=== PATIENT | female | born 1950 | race Caucasian/White ===

== ENCOUNTER → 2016-09-30 06:46 | Day surgery (SDC) | payer MEDICARE, BC ==
[~2016-09-30 06:46] MED LIST: Buffered Lidocaine 1% SYR 3ML* 3 ML/SYR SYRINGE INTRADERM ONE; Buffered Lidocaine 1% SYR 3ML* 3 ML/SYR SYRINGE ONE; Bupivacaine 0.25% SDV* 30 ML ONE; Bupivacaine 0.5% W/EPI SDV* 30 ML VIAL ONE; Dexamethasone IV* 4 MG/ML 1 ML (4 MG) ONE; DiMENhydriNATE IV* 50 MG/ML VIAL IV PUSH ONE; DiMENhydriNATE IV* 50 MG/ML VIAL ONE; EPHEDrine (Pressors)* 50 MG/ML VIAL ONE; EPINEPHrine AMP 1 MG/ML ONE; Famotidine IV* 10 MG/ML 2 ML (20 mg) IV ONE; Famotidine IV* 10 MG/ML 2 ML (20 mg) ONE; KETAMINE HCL* 50 MG/ML 10 ML VIAL ONE; Ketorolac INJ* 30 MG/ML 1 ML VIAL ONE; Lidocaine 2% PF * 5 ML VIAL ONE; Midazolam* 1 MG/ML 5 ML VIAL (5 MG) ONE; Morphine INJ* 10 MG/ML 1 ML CARPUJECT ONE; Morphine INJ* 2 MG/ML 1 ML CARPUJECT IV PRN; Ondansetron INJ* 2 MG/ML VIAL ONE; PROCHLORPERAZINE INJ 5 MG/ML 2 ML VIAL IV PRN; PROCHLORPERAZINE INJ 5 MG/ML 2 ML VIAL ONE; Phenylephrine INJ* 10 MG/ML 1 ML VIAL (10 MG) ONE; Propofol* 10 MG/ML 20 ML BTL IV PUSH ONE; Scopolamine PATCH Remove* 1 NOTE MISC PATCH OFF ONE; ceFAZolin 2 GM PREMIX (*) 2 GM/50 ML BAG IVPB ONE; fentaNYL* 50 MCG/ML 2 ML VIAL (100 MCG VIAL) ONE; oxyCODONE/Acetamin 5/325 MG* TAB ONE; oxyCODONE/Acetamin 5/325 MG* TAB PO PRN
[2016-09-30] MEDS: fentaNYL* 50 MCG/ML 2 ML VIAL (100 MCG VIAL) IV PRN ×2 (10:50→11:28)
[2016-09-30 13:14] VITALS: BP 140/83
--- NOTE | 2016-10-02 02:20 | OP ---
OPERATIVE REPORT: DATE OF OPERATION: 09/30/16 DATE OF : 52 SURGEON: Antonino Lucero MD PIPELINE SYSTEMS OPERATOR: JOSHUA Ayon ANESTHESIOLOGIST: Dr. Miller. ANESTHESIA: General anesthesia, regional anesthesia. PRE-OP DIAGNOSES: 1. Left shoulder partial thickness rotator cuff tear, supraspinatus. 2. Left shoulder possible biceps, possible superior labral tear. 3. Left shoulder subacromial impingement. 4. Left shoulder AC joint arthritis. 5. Left shoulder capsulitis, stiffness/reduced range of motion. 6. Left shoulder os acromiale POST-OP DIAGNOSES: 1. Left shoulder partial thickness rotator cuff tear, supraspinatus. 2. Left shoulder subacromial impingement. 3. Left shoulder AC joint arthritis. 4. Left shoulder capsulitis, reduced range of motion. 5. No left shoulder biceps tear. 6. Positive left shoulder unstable superior labral tear. 7. Left shoulder os acromiale OPERATIVE PROCEDURE: 1. Left shoulder examination under anesthesia. 2. Left shoulder manipulation under anesthesia. 3. Left shoulder arthroscopic debridement, extensive, including of the superior labrum, rotator cuff interval, and subacromial bursa. 4. Left shoulder arthroscopic lysis of adhesions, rotator interval. 5. Left shoulder arthroscopic release of biceps tendon 6. Left shoulder arthroscopic subacromial decompression. 7. Left shoulder arthroscopic distal clavicle resection. ANTIBIOSIS: 2 g Ancef IV. ESTIMATED BLOOD LOSS: Minimal. COMPLICATIONS: None. SPECIMEN: None. IMPLANTS: None. 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 It affected her activities of daily living as well as sleep. The patient was treated, insufficiently, with 12 full weeks of physical therapy, NSAIDs including Aleve, ibuprofen, and Celebrex as well as Tylenol, and a subacromial cortisone injection. On the patient's exam, she consistently had subacromial impingement signs, pain and/or weakness with rotator cuff stress testing. The patient sometimes had tenderness to palpation of the proximal biceps. The patient had more recent clinic visits and demonstrated decreased forward flexion even after I had allowed some time in clinic to try to enhance this passive range of motion slowly and softly. X- rays demonstrated an os acromiale as well as AC joint, significant narrowing and increased anterior hook of the acromion. MRI demonstrated partial thickness articular-sided rotator cuff tear of the anterior most supraspinatus approximately 50%, chronic, with no increased signal of that tear. It also showed a Nick complex and os acromiale. The patient opted for surgical management. DESCRIPTION OF PROCEDURE: Preoperative written consent. Operative extremity was marked in the preoperative holding. The patient opted for biceps release preoperatively as the biceps needed to be treated likewise as the superior labrum needed to be treated. The patient received a regional anesthetic block in the preoperative holding. The patient was taken back to the operating room and placed in a lateral decubitus position. Dr. Miller intubated the patient with an LMA in that lateral decubitus position. All bony prominences were padded. Axillary roll was placed. Talavera bag was inflated. An examination under anesthesia was done. I did not know, based on her preoperative exam, whether the patient would have restricted range of motion while under anesthesia. As it turned out, examination under anesthesia demonstrated continued limited forward flexion to approximately 120 degrees with limited rotation as well. I performed a manipulation under anesthesia, carefully, with my hands placed close to the glenohumeral joint. Palpable and audible popping were appreciated as I improved the patient's range of motion with manipulation to 180 degrees of forward flexion, 90 degrees of external rotation, and 80 degrees of internal rotation with a shoulder in an abducted position. The left shoulder was placed in 10 pounds of traction. The left shoulder was prepped and draped. Surgical time-out was performed. After the patient was fully prepped and draped, a formal time- out was performed. 20 cc of normal saline were injected from posterior into the left glenohumeral joint. A posterior glenohumeral joint portal was then established using standard technique. Diagnostic arthroscopy was commenced. There was some blood in the glenohumeral joint as is typically seen after manipulation under anesthesia. An anterior glenohumeral joint portal was established under direct visualization. I then did a thorough look around the glenohumeral joint. No significant cartilage lesion of the glenoid or humeral head were visible. I viewed inferiorly, where the capsule had been overly tight and where it clearly been pulled off of the labrum with the manipulation under anesthesia. Looking at the glenoid and labrum, there did appear to be Nick complex. There was a superior labral tear. I debrided the edges of it with an arthroscopic shaver placed anteriorly. This allowed me to better visualize the superior labral tear. With an arthroscopic probe, I doubt that it elevated more than 5 mm and was thus unstable. The biceps tendon itself was not damaged. Given the superior labral tear, the decision was made to cut the biceps. I entered arthroscopic scissors from anterior and cut the biceps tendon at its origin. I debrided the superior labrum to a stable base. I then debrided some very thickened tissue in the rotator interval, likely responsible for some of the patient's restriction of motion preoperatively. This allowed me to well visualize the subscapularis, which was fully intact. I next looked at the undersurface of the supra and infraspinatus. Interestingly, along the anterior edge of the supraspinatus, there was no clear rotator cuff tearing. There was no visible footprint. However, there were some bony changes about the posterior supraspinatus and the superior infraspinatus footprints. There was no clear torn rotator cuff tendon tissue; however, there appeared to be either some cystic lesion or some uncovered footprint. However, if these were uncovered footprints, I would say it was less than 5 mm. It was clearly chronic and clearly not the source of the patient's pain. Shows an area where that exposed footprint was largest and placed a spinal needle to jaylon that spot to evaluate it from the superior side from the subacromial space. All instruments and fluid were removed from the glenohumeral joint. I then went into the subacromial space from posterior and anterior. I established a lateral subacromial portal under direct visualization. In the subacromial space, I encountered tremendous amount of bursitis tissue. I used an arthroscopic shaver to debride this significant amount of bursitis tissue. I was able to well visualize the rotator cuff. There was no clear rotator cuff tear. About the location of the spinal needle, I probed with an arthroscopic probe. I was quite aggressive and still was not able to get all the way through the rotator cuff tendon, demonstrating that if there were rotator cuff tendon tear, it was low-grade partial thickness. I turned my attention to the acromion and debrided approximately 6 mm of the inferior aspect of the anterior hook of the acromion. I was wary of taking too much bone given the presence of an os acromiale. I next addressed the distal clavicle and debrided 8 mm of the distal clavicle. Instruments and fluid were removed from the subacromial space. The skin incisions were closed with figure- of-8 stitches using nylon 4-0 suture. Xeroform, 4x4s, ABD dressings, foam tape , sling, UltraSling was placed. The patient was awakened. LMA was taken out and the patient was transferred to the PACU. DISPOSITION: The patient will receive Percocet for pain control, aspirin for DVT prophylaxis, and Keflex for antibiotic infection prophylaxis postoperatively. She can remove her sling when she is comfortable doing so, wean out of it immediately. I will have her do physical therapy for strengthening and range of motion starting 3 days after surgery, and I will see her in the office 10 to 14 days postoperatively. [id number]/CPS #: [id number] MTDD
== END | disposition home or self-care (01) ==
LOC: OR 06:46
PROVIDERS: ATTEND Orthopaedic Surgery
DX: M75.42 Impingement syndrome of left shoulder (principal); M19.012 Primary osteoarthritis, left shoulder; M75.102 Unspecified rotator cuff tear or rupture of left shoulder, not specified as traumatic; M75.02 Adhesive capsulitis of left shoulder; I10 Essential (primary) hypertension
CPT/HCPCS: A9270-GY; J0171; J0690; J0780; J1100; J1240; J1885; J2250; J2270; J2405; J2704; J3010

== ENCOUNTER 2016-11-27 19:33 | Emergency (ER) | payer MEDICARE, BC ==
[2016-11-27] MEDS ORDERED: Al Hydrox/Mg Hydrox/Simet LIQ* 30 ML UDC PO ONE ×2 (20:26→21:35)
[2016-11-27] MEDS ORDERED: Lidocaine 2% VISCOUS* 15 ML UDC PO ONE ×2 (20:26→21:35)
[2016-11-27] MEDS ORDERED: Famotidine TAB* 20 MG PO ONE (20:26)
--- NOTE | 2016-11-27 21:38 | ED ---
I, Oh,Ivan, scribed for Kvng Birch MD on 11/27/16 at 2026 . Abdominal Pain/Female - HPI Summary HPI Summary: This 66 y/o female presents to ED for acute, burning epigastric pain radiating up to throat since 0100 AM this morning. She stopped taking her GERD medication since 5 days ago. Swallowing makes the pain worse. Blood was noted in n/v. Lying down makes the throat and epigastric pain worse. Pt was able to consume banana, but otherwise had trouble tolerating oral intake. Pt has been controlling her heartburn with chewable TUMS all day today. She took prevacid at 1400 PM this afternoon. PMHx includes known GERD, HTN, and spastic esophagitis. Plan of care involving maalox and GI cocktail is discussed. Pt is currently refusing any cardiac workup. - History of Current Complaint Chief Complaint: EDGeneral Stated Complaint: SEVER HEARTBURN X12 HRS Time Seen by Provider: 11/27/16 20:11 Hx Obtained From: Patient, Medical Records Onset/Duration: Still Present Timing: Constant Pain Intensity: 8 Pain Scale Used: 0-10 Numeric Location: Epigastric Radiates: Yes Radiates to: Other - throat Character: Sharp, Burning Aggravating Factor(s): Food, Other: - lying down Alleviating Factor(s): Antacids Associated Signs and Symptoms: Positive: Nausea, Vomiting. Negative: Fever Allergies/Adverse Reactions: Allergies Allergy/AdvReac Type Severity Reaction Status Date / Time No Known Allergies Allergy Verified 11/27/16 19:41 PMH/Surg Hx/FS Hx/Imm Hx Endocrine/Hematology History: Denies: Hx Diabetes Cardiovascular History: Reports: Hx Hypertension - ON DAILY MEDS, STATES WELL CONTROLLED Denies: Hx Pacemaker/ICD GI History: Reports: Hx Gastroesophageal Reflux Disease - ", Hx Hiatal Hernia History: Denies: Hx Renal Disease Musculoskeletal History: Reports: Hx Arthritis - HANDS, Hx Tendonitis - ? LEFT SHOULDER Sensory History: Reports: Hx Cataracts - BILATERAL 2006, Hx Contacts or Glasses - GLASSES Denies: Hx Hearing Aid Opthamlomology History: Reports: Hx Cataracts - BILATERAL 2006, Hx Contacts or Glasses - GLASSES Neurological History: Reports: Hx Migraine - Hx OF NONE IN YEARS, THEN 1 ON 09/11, NO MEDS Psychiatric History: Denies: Hx Panic Disorder - Cancer History Hx Chemotherapy: No Hx Radiation Therapy: No - Surgical History Surgery Procedure, Year, and Place: 2006 cataract surgery-BILATERAL [facility]. 2000s LEFT ABD. fatty tumor removed DR PEREZ. 2007 hysterectomy (partial) [facility]. pterygium removal Hx Anesthesia Reactions: Yes - 2007 POT OP NIGHT BAD VARGAS, N/V Infectious Disease History: Yes Infectious Disease History: Reports: Hx Clostridium Difficile Denies: Traveled Outside the [place] in Last 30 Days - Family History Known Family History: Negative: Other - breast CA - Social History Alcohol Use: Occasionally Alcohol Amount: 1-2 DRINKS/MONTH Hx Substance Use: No Substance Use Type: Reports: None Hx Tobacco Use: No Smoking Status (MU): Never Smoked Tobacco Have You Smoked in the Last Year: No Review of Systems Negative: Fever Positive: Abdominal Pain - epigastric pain, Vomiting, Nausea Negative: dysuria Negative: Anxious, Depressed All Other Systems Reviewed And Are Negative: Yes Physical Exam Triage Information Reviewed: Yes Vital Signs On Initial Exam: Initial Vitals Temp Pulse Resp BP Pulse Ox 96.8 F 80 14 156/81 100 11/27/16 19:36 11/27/16 19:36 11/27/16 19:36 11/27/16 19:36 11/27/16 19:36 Vital Signs Reviewed: Yes Appearance: Positive: Well-Appearing, No Pain Distress Skin: Positive: Warm, Skin Color Reflects Adequate Perfusion, Dry Head/Face: Positive: Normal Head/Face Inspection Eyes: Positive: EOMI, ESSIE Neck: Positive: Supple, Nontender Abdomen Description: Positive: Other: - epigastric tenderness Musculoskeletal: Positive: Strength/ROM Intact Neurological: Positive: Sensory/Motor Intact, Alert, Oriented to Person Place, Time Psychiatric: Positive: Affect/Mood Appropriate AVPU Assessment: Alert Diagnostics - Vital Signs Vital Signs Temp Pulse Resp BP Pulse Ox 11/27/16 19:36 96.8 F 80 14 156/81 100 - Laboratory Lab Statement: Any lab studies that have been ordered have been reviewed, and results considered in the medical decision making process. Abdominal Pain Fem Course/Dx - Course Course Of Treatment: DISCUSSED LABS/EKG/CHEST PAIN WORK UP WITH PATIENT. SHE BELEIVES THIS IS GERD AND DECLINES WORK UP. PAIN IMPROVED WITH GI COCKTAIL AND PEPCID PO. DISCHARGE HOME STABLE. - Diagnoses Provider Diagnoses: GERD (gastroesophageal reflux disease) Discharge - Discharge Plan Condition: Stable Disposition: HOME Prescriptions: Lansoprazole CAP (NF) [Prevacid CAP (NF)] 30 mg PO DAILY #30 cap. Sucralfate TAB* [Carafate*] 1 gm PO QID #40 tab Patient Education Materials: Gastroesophageal Reflux Disease (ED) Referrals: Lucian Taylor MD [Primary Care Provider] - Additional Instructions: FOLLOW UP WITH YOUR DOCTOR. RETURN TO THE EMERGENCY DEPARTMENT FOR ANY WORSENING OF YOUR CONDITION OR QUESTIONS OR CONCERNS. The documentation as recorded by the Jamaal lockhart Soohyun accurately reflects the service I personally performed and the decisions made by me, Kvng Birch MD.
[2016-11-27 22:14] VITALS: BP 144/84
== END 2016-11-27 22:12 | disposition home or self-care (01) ==
LOC: ED 19:33
DX: K21.9 Gastro-esophageal reflux disease without esophagitis (principal); R11.2 Nausea with vomiting, unspecified; R10.13 Epigastric pain
CPT/HCPCS: 99283; A9270-GY

== ENCOUNTER 2019-09-06 12:41 | Observation (INO) | payer MEDICARE, BC ==
[~2019-09-06 12:41] MED LIST changes: -Buffered Lidocaine 1% SYR 3ML* 3 ML/SYR SYRINGE INTRADERM ONE; -Buffered Lidocaine 1% SYR 3ML* 3 ML/SYR SYRINGE ONE; -Bupivacaine 0.25% SDV* 30 ML ONE; -Bupivacaine 0.5% W/EPI SDV* 30 ML VIAL ONE; -Dexamethasone IV* 4 MG/ML 1 ML (4 MG) ONE; -DiMENhydriNATE IV* 50 MG/ML VIAL IV PUSH ONE; -DiMENhydriNATE IV* 50 MG/ML VIAL ONE; -EPHEDrine (Pressors)* 50 MG/ML VIAL ONE; -EPINEPHrine AMP 1 MG/ML ONE; -Famotidine IV* 10 MG/ML 2 ML (20 mg) IV ONE; -Famotidine IV* 10 MG/ML 2 ML (20 mg) ONE; +Hydrochlorothiazide TAB* 25 MG PO SCH; -KETAMINE HCL* 50 MG/ML 10 ML VIAL ONE; -Ketorolac INJ* 30 MG/ML 1 ML VIAL ONE; -Lidocaine 2% PF * 5 ML VIAL ONE; -Midazolam* 1 MG/ML 5 ML VIAL (5 MG) ONE; -Morphine INJ* 10 MG/ML 1 ML CARPUJECT ONE; -Morphine INJ* 2 MG/ML 1 ML CARPUJECT IV PRN; -Ondansetron INJ* 2 MG/ML VIAL ONE; -PROCHLORPERAZINE INJ 5 MG/ML 2 ML VIAL IV PRN; -PROCHLORPERAZINE INJ 5 MG/ML 2 ML VIAL ONE; -Phenylephrine INJ* 10 MG/ML 1 ML VIAL (10 MG) ONE; -Propofol* 10 MG/ML 20 ML BTL IV PUSH ONE; -Scopolamine PATCH Remove* 1 NOTE MISC PATCH OFF ONE; -ceFAZolin 2 GM PREMIX (*) 2 GM/50 ML BAG IVPB ONE; -fentaNYL* 50 MCG/ML 2 ML VIAL (100 MCG VIAL) ONE; -oxyCODONE/Acetamin 5/325 MG* TAB ONE; -oxyCODONE/Acetamin 5/325 MG* TAB PO PRN
[2019-09-06 13:12] LABS: ABS Eosinophils 0.1 10^3/ul (0-0.6); ABS Lymphocytes 2.9 10^3/ul (1.0-4.8); ABS Monocytes 0.5 10^3/ul (0-0.8); ABS Neutrophils 4.5 10^3/ul (1.5-7.7); Eosinophil % 0.7 %; Hematocrit 41 % (35-47); Hemoglobin 14.6 g/dL (12.0-16.0); Lymphocyte % 36.6 %; Mean Corpuscular HGB Conc 35 g/dL (31-36); Mean Corpuscular Hemoglobin 30 pg (27-31); Mean Corpuscular Volume 86 fL (80-97); Mean Platelet Volume 7.7 fL (7.4-10.4); Nucleated Red Blood Cells % 0.2; Platelet Count 281 10^3/uL (150-450); Red Blood Count 4.79 10^6 /uL (3.70-4.87); Red Cell Distribution Width 13 % (10-15); White Blood Count 7.9 10^3/uL (3.5-10.8)
[2019-09-06 13:23] LABS: INR 0.97 (0.82-1.09)
[2019-09-06 13:30] LABS: Albumin 4.2 g/dL (3.2-5.2); Albumin/Globulin Ratio 1.5 (1-3); BUN/Creatinine Ratio 21.8 (8-20); Calcium 9.3 mg/dL (8.6-10.3); EGFR African American 88.9 (>60); EGFR Non-African American 73.4 (>60); Globulin 2.8 g/dL (2-4); Potassium 4.4 mmol/L (3.5-5.0); Total Bilirubin 0.4 mg/dL (0.2-1.0)
--- NOTE | 2019-09-06 13:33 | ED ---
HPI Chest Pain - HPI Summary HPI Summary: Pt is a 69 y/o F presenting to the ED with a chief complaint of chest pain initially onset a while ago. Pt states it has been worsening for about 1 week now, and describes episodes of SOB, weakness, and slight edema of her feet. She called her doctor this morning who did an EKG and recommended she come here d/t EKG changes. Denies cardiac hx, hx PE/DVT, CHF. Fam hx of cardiac problems. - History of Current Complaint Chief Complaint: EDChestPainROMI Time Seen by Provider: 09/06/19 13:12 Hx Obtained From: Patient Onset/Duration: Started Days Ago, Still Present Timing: Intermittent, Lasting Hours Initial Severity: Mild Current Severity: Mild Pain Intensity: 2 Pain Scale Used: 0-10 Numeric Chest Pain Location: Diffuse Chest Pain Radiates: No Character: Pressure/Squeezing Aggravating Factor(s): Nothing Alleviating Factor(s): Nothing Associated Signs and Symptoms: Positive: Chest Pain, Weakness, Shortness of Breath, Palpitations, Edema - Allergy/Home Medications Allergies/Adverse Reactions: Allergies Allergy/AdvReac Type Severity Reaction Status Date / Time No Known Allergies Allergy Verified 09/06/19 13:44 Home Medications: Home Medications Aspirin EC TAB* [Ecotrin EC Low Dose 81 MG*] 81 mg PO DAILY 09/06/19 [History Confirmed 09/06/19] Losartan/Hydrochlorothiazide [Losartan-Hctz 50-12.5 mg Tab] 1 each PO DAILY 06/16 [History Confirmed 09/06/19] PMH/Surg Hx/FS Hx/Imm Hx Previously Healthy: Yes Endocrine/Hematology History: Denies: Hx Diabetes Cardiovascular History: Reports: Hx Hypertension - ON DAILY MEDS, STATES WELL CONTROLLED Denies: Hx Pacemaker/ICD GI History: Reports: Hx Gastroesophageal Reflux Disease - ", Hx Hiatal Hernia History: Denies: Hx Renal Disease Musculoskeletal History: Reports: Hx Arthritis - HANDS, Hx Tendonitis - ? LEFT SHOULDER Sensory History: Reports: Hx Cataracts - BILATERAL 2006, Hx Contacts or Glasses - GLASSES Denies: Hx Hearing Aid Opthamlomology History: Reports: Hx Cataracts - BILATERAL 2006, Hx Contacts or Glasses - GLASSES Neurological History: Reports: Hx Migraine - Hx OF NONE IN YEARS, THEN 1 ON 09/11, NO MEDS Psychiatric History: Denies: Hx Panic Disorder - Cancer History Hx Chemotherapy: No Hx Radiation Therapy: No - Surgical History Surgery Procedure, Year, and Place: 2006 cataract surgery-B[facility]ATER[facility]. 2000s LEFT ABD. fatty tumor removed DR CHRIS. 2007 hysterectomy (partial) [facility]. pterygium removal Hx Anesthesia Reactions: Yes - 2007 POT OP NIGHT BAD VARGAS, N/V Infectious Disease History: No Infectious Disease History: Reports: Hx Clostridium Difficile Denies: Traveled Outside the [place] in Last 30 Days - Family History Known Family History: Negative: Other - breast CA - Social History Alcohol Use: Occasionally Alcohol Amount: 1-2 DRINKS/MONTH Hx Substance Use: No Substance Use Type: Reports: None Hx Tobacco Use: No Smoking Status (MU): Never Smoked Tobacco Have You Smoked in the Last Year: No Review of Systems Positive: Palpitations, Chest Pain Positive: Shortness Of Breath Positive: Edema Positive: Weakness All Other Systems Reviewed And Are Negative: Yes Physical Exam - Summary Physical Exam Summary: Constitutional: Well-developed, Well-nourished, Alert. (-) Distressed Skin: Warm, Dry HENT: Normocephalic; Atraumatic Eyes: Conjunctiva normal Neck: Musculoskeletal ROM normal neck. (-) JVD, (-) Stridor, (-) Nuchal rigidity Cardio: Rhythm regular, rate normal, Heart sounds normal; Intact distal pulses; Radial pulses are 2+ and symmetric. (-) Murmur Pulmonary/Chest wall: Effort normal. (-) Respiratory distress, (-) Wheezes, (-) Rales Abd: Soft, (-) tenderness, (-) Distension, (-) Guarding, (-) Rebound Musculoskeletal: (-) Edema Lymph: (-) Cervical adenopathy Neuro: Alert, Oriented x3 Psych: Mood and affect Normal Triage Information Reviewed: Yes Vital Signs On Initial Exam: Initial Vitals Temp Pulse Resp BP Pulse Ox 97.1 F 69 16 176/87 100 09/06/19 12:44 09/06/19 12:44 09/06/19 12:44 09/06/19 12:44 09/06/19 12:44 Vital Signs Reviewed: Yes Diagnostics - Vital Signs Vital Signs Temp Pulse Resp BP Pulse Ox 09/06/19 12:44 97.1 F 69 16 176/87 100 - Laboratory Lab Results: Lab Results 09/06/19 09/06/19 Range/Units 12:53 12:53 WBC 7.9 (3.5-10.8) 10^3/uL RBC 4.79 (3.70-4.87) 10^6 /uL Hgb 14.6 (12.0-16.0) g/dL Hct 41 (35-47) % MCV 86 (80-97) fL MCH 30 (27-31) pg MCHC 35 (31-36) g/dL RDW 13 (10-15) % Plt Count 281 (150-450) 10^3/uL MPV 7.7 (7.4-10.4) fL Neut % (Auto) 56.5 % Lymph % (Auto) 36.6 % [place] % (Auto) 5.8 % Eos % (Auto) 0.7 % Baso % (Auto) 0.4 % Absolute Neuts (auto) 4.5 (1.5-7.7) 10^3/ul Absolute Lymphs (auto) 2.9 (1.0-4.8) 10^3/ul Absolute Monos (auto) 0.5 (0-0.8) 10^3/ul Absolute Eos (auto) 0.1 (0-0.6) 10^3/ul Absolute Basos (auto) 0.0 (0-0.2) 10^3/ul Absolute Nucleated RBC 0.0 10^3/ul Nucleated RBC % 0.2 INR (Anticoag Therapy) 0.97 (0.82-1.09) Result Diagrams: 09/06/19 12:53 09/06/19 12:53 Lab Statement: Any lab studies that have been ordered have been reviewed, and results considered in the medical decision making process. - Radiology CXR Radiology Interpretation Completed By: Radiologist Summary of Radiographic Findings: Stigmata of probable obstructive lung disease. No acute pulmonary or cardiac process evident. ED physician has reviewed this report. - EKG 1244 Cardiac Rate: NL - 67bpm EKG Rhythm: Sinus Rhythm ST Segment: Normal Ectopy: None EKG Comparison: No Significant Change Summary of EKG Findings: An EKG at 1244 reveals normal sinus rhythm 67bpm, nml axis, nml intervals. T-wave inversions in III, v3, v4. No STEMI. No acute changes. When compared to prior, 11/30/2015, no significant change is noted. ED physician has reviewed and interpreted this EKG. Chest Pain Course/Dx - Course Course Of Treatment: 69 y/o F p/w SOUSA and chest tightness. - EKG reviewed, no noted changes. - labs notable for normal trop, BNP normal (does have trace edema LE). - CXR normal. Chest Pain DDX: The patient is well appearing, with stable vitals. Given the patient's clinical presentation, highest on differential is ACS. Heart score 5, will d/w hospital. Although less likely, differential also includes the following: --Pneumothorax: Equal breath sounds, story inconsistent since gradual onset of symptoms. CXR shows no evidence of pneumothorax. Unlikely. --Cardiac tamponade: The history and physical are not concerning for tamponade. No Pulsus Paradoxus, no tachypnea. Unlikely. -- Mediastinitis or esophageal rupture: The history is not consistent, as the patient has had no recent history of significant wretching, instrumentation, or mediastinal surgeries. Unlikely. --Aortic dissection: The patient does not describe the classical tearing chest pain radiating into the back, and the CXR does not show mediastinal widening or other signs of aortic dissection. Unlikely. --PE: Vitals wnl (not hypoxic, tachycardic or tachypneic). --ACS: The initial EKG shows no ischemic changes. The initial troponin is not elevated. - Diagnoses Provider Diagnoses: Chest pain, SOB (shortness of breath) - Provider Notifications Discussed Care Of Patient With: Aguilar Flores Time Discussed With Above Provider: 14:34 Instructed by Provider To: Admit As Inpatient Discharge ED - Sign-Out/Discharge Documenting (check all that apply): Patient Departure - Discharge Plan Condition: Stable Disposition: ADMITTED TO [facility] - Billing Disposition and Condition Condition: STABLE Disposition: Admitted to [facility] - Attestation Statements Document Initiated by Scribe: Yes Documenting Scribe: Serena Sarmiento Provider For Whom Jordana is Documenting (Include Credential): Pratibha Ruiz MD. Scribe Attestation: Serena Chen, scribed for Pratibha Ruiz MD. on 09/06/19 at 2020. Scribe Documentation Reviewed: Yes Provider Attestation: The documentation as recorded by the scribe, Serena Sarmiento accurately reflects the service I personally performed and the decisions made by me, Pratibha Ruiz MD. Status of [place] Document: Viewed
[2019-09-06] MEDS ORDERED: Enoxaparin(*) 40 MG/0.4 ML SYR SUBCUT SCH ×2 (16:00→23:30)
--- NOTE | 2019-09-06 17:25 | HP ---
CC: Dr. Yenny Ma * HISTORY AND PHYSICAL: DATE OF ADMISSION: 09/06/19 PRIMARY CARE PROVIDER: Dr. Yenny Ma. ATTENDING PHYSICIAN: Dr. Aguilar Flores * (dictated by JOSHUA Garcia). CHIEF COMPLAINT: 1. Shortness of breath. 2. Chest pain. HISTORY OF PRESENT ILLNESS: Ms. Curran is a 69-year-old female with a past medical history of hypertension, GERD, esophageal spasms, who presented to the ER today with complaints of chest pain and shortness of breath. She notes that she has had this for "years," but notes that it happens intermittently approximately once every 3 months. She states that this has been occurring daily for the last 1 week. She notes that her shortness of breath is worse at night when she is lying flat. To alleviate this, she sleeps in a recliner, which she notes improves her shortness of breath and chest pain, but her chest tightness lasts for several hours afterwards. She has associated chest tightness with activity such as cleaning the house. She also has associated shortness of breath and dizziness. She denies diaphoresis. Her chest pain is midsternal without radiation, it improves with rest. She describes it as a tightness that she rates at 5-6/10. She does have associated palpitations at times. Incidentally, the patient notes that her left arm aches every morning and this goes away within 1 hour. This left arm ache is not associated with chest pain and she believes it is positional because of the way she sleeps. The patient states that she has had associated bilateral lower extremity edema, which has since resolved. She states that elevation of the extremities improves the edema. The patient complains of headache and intermittent dry cough for the last couple of weeks. The patient's HEART score calculated is 5, moderate score. In the ER, the patient received a full workup including laboratory data. CBC and CMP were unremarkable. Troponin 0.00. An EKG shows ST depression in leads V3 to V5, which are unchanged from EKG in November of 2015. Chest x-ray shows probable obstructive lung disease. The hospitalist team was asked to evaluate the patient for admission. PAST MEDICAL HISTORY: 1. Hypertension. 2. GERD. 3. Esophageal spasms. 4. History of migraines. 5. Osteoarthritis. PAST SURGICAL HISTORY: Bilateral cataracts, fatty tumor from abdomen, partial hysterectomy, pterygium, left shoulder. HOME MEDICATIONS: 1. Aspirin 81 mg p.o. daily. 2. Cholecalciferol 1000 units p.o. daily. 3. Conjugated estrogens vaginal cream 1 application vaginally 2 times per week. 4. Cyanocobalamin 1000 mcg p.o. 4 times per week. 5. Hydrochlorothiazide 12.5 mg p.o. 3 times per week. 6. Hyoscyamine 0.125 mg p.o. daily p.r.n. 7. Lansoprazole 30 mg p.o. daily. 8. Losartan 50 mg p.o. daily. ALLERGIES: No known drug allergies. FAMILY HISTORY: The patient has 4 siblings who have had coronary artery disease or WI. Mother had CVA, valve replacement. Father had WI and diabetes. Paternal grandmother had an WI. No family history of cancer. SOCIAL HISTORY: The patient denies current or former use of tobacco. She drinks less than weekly. 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 She is . She has 1 child. She lives home alone. In the event that she is unable to make her own medical decisions, she has appointed her brother Randall Mar to be her surrogate decision maker. REVIEW OF SYSTEMS: A 14-point review of systems has been performed and all the pertinent positives and negatives are in the HPI. All other systems are negative. PHYSICAL EXAMINATION GENERAL: Ms. Curran is a well-developed, well-nourished, slightly obese, older white woman, who is sitting up in bed. She appears to be in no acute distress. She is pleasant and cooperative. She is breathing comfortably on room air. HEENT: PERRL. EOMI. Visual fung grossly intact. Nonicteric sclerae. Hearing is grossly intact. Oral mucous membranes are moist. There are no lesions. The pharynx is clear. The tongue is at midline. Palate elevates symmetrically. PULMONARY: Symmetrical chest expansion without use of accessory muscles. Clear to auscultation bilaterally without rhonchi, wheeze, or rales. CARDIOVASCULAR: Regular rate and rhythm with S1 and S2 present without murmurs , rubs, clicks, or gallops. There is no JVD. There is trace lower extremity edema. ABDOMEN: Bowel sounds in all quadrants. Soft, nontender to palpation. NEURO: The patient is awake. She is alert and oriented x3 with cranial nerves II through XII grossly intact. She is able to move all of her extremities with a motor strength of 5/5 bilaterally in the upper and lower extremities. She has an equal patient care assistant strength. DIAGNOSTIC STUDIES/LAB DATA: CBC unremarkable. Chem panel unremarkable except for BUN/creatinine ratio of 21.8. Troponin 0.00. 1. EKG: Rate [address] depressions in V3 to V5, which are unchanged in comparison to November 2015 EKG. 2. Chest x-ray, impression: Stigmata of probable obstructive lung disease. No acute pulmonary or cardiac process evident. ASSESSMENT AND PLAN: Ms. Curran is a 69-year-old female with a past medical history of hypertension, gastroesophageal reflux disease, esophageal spasms, who presented to the ER today with complaints of dyspnea on exertion, paroxysmal nocturnal dyspnea, and exertional chest pain. She will be admitted for: 1. Chest pain, dyspnea on exertion. The patient presents with exertional chest pain, dyspnea on exertion, and paroxysmal nocturnal dyspnea as well as lower extremity edema. She states that these symptoms have been occurring for approximately 1 week. In the ER, the patient has a troponin of 0.00 x1. We will continue to trend the patient's troponin. An EKG was obtained and shows ST depressions in V3 to V5, which are unchanged from her previous EKG in 2016. We will repeat an EKG in the morning. The patient is currently on aspirin 81 mg daily and we will continue this medication. Risk stratification with hemoglobin A1c and lipid panel. An echo has been ordered. Discussion was had with the patient and recommendations are that the patient receive a stress test while she is in the hospital. The patient is not interested in spending the weekend in the hospital, but would like to take the night to think about it. Meanwhile, I have scheduled a stress test for Monday morning inpatient and she will be n.p.o. after midnight on Monday night. 2. Hypertension. Continue the patient's losartan 50 and HCTZ 12.5 three times per week. 3. Gastroesophageal reflux disease. Continue PPI. 4. Esophageal spasms. Hyoscyamine p.r.n. 5. DVT prophylaxis: According to DVT Risk Assessment, the patient scores 3, placing her at high risk. She will be started on Lovenox. 6. Code status: Full code. TIME SPENT: Approximately 60 minutes was spent on this admission, greater than half that time was spent [id number] with the patient obtaining history, performing physical, and reviewing the plan of care. The case has been discussed with my attending Dr. Flores, who is in agreement with the plan of care. JOSHUA STALLINGS [id number]/[facility] #: [id number] AARTI
--- NOTE | 2019-09-06 17:39 | ECHO ---
*[facility]* [place] [address] Fax #: [phone] Transthoracic Echocardiogram Patient: Aleyda Curran : 1950 Study Date: 09/06/2019 Age: 69 Gender: F HR: 74 bpm Height: 62 in /157.5 cm BSA: 1.77 m^2 Weight: 166.7 lb /75.8 kg BMI: 30.5 kg/m^2 *Cattle Care Worker: * Meg Denise RD *Referring Physician: * Mar Mcduffie *Reading Physician: * Mo Flanagan MD Indications: Chest Pain, unspecified. SOB. History: Risk factors: Hypertension. Hiatal hernia. Conclusions Summary: - Left ventricle: The cavity size is normal. Wall thickness is mildly increased. Systolic function is normal. The estimated ejection fraction is 60-65%. Wall motion is normal; there are no regional wall motion abnormalities. - Right ventricle: The cavity size is mildly dilated. Systolic function is mildly reduced. - Left atrium: The atrium is mildly dilated. - Mitral valve: There is mild to moderate regurgitation. - Pulmonary arteries: Systolic pressure is within the normal range. Recommendations: None prior for comparison. Study data: Transthoracic echocardiogram. Procedure: Transthoracic echocardiography was performed. Image quality was fair. Complete 2D, spectral Doppler, and color flow Doppler. Location: Emergency department. Patient status: Inpatient. Patient room number: ED-03. Rhythm: Normal sinus rhythm with PAC's. Findings Left ventricle: The cavity size is normal. Wall thickness is mildly increased. Systolic function is normal. The estimated ejection fraction is 60-65%. Wall motion is normal; there are no regional wall motion abnormalities. Doppler parameters are consistent with abnormal left ventricular relaxation (grade 1 diastolic dysfunction). Right ventricle: The cavity size is mildly dilated. Systolic function is mildly reduced. Left atrium: The atrium is mildly dilated. Right atrium: The atrium is normal in size. Mitral valve: The leaflets are mildly thickened. There is no evidence of stenosis. There is mild to moderate regurgitation. Aortic valve: The valve is trileaflet. The leaflets are mildly thickened. There is no evidence of stenosis. There is trace regurgitation. Tricuspid valve: The leaflets are normal thickness. There is no evidence of stenosis. There is mild regurgitation. Pulmonic valve: The leaflets are normal thickness. There is no evidence of stenosis. There is trace regurgitation. Aorta: Aortic root: The aortic root is appears normal. Ascending aorta: The ascending aorta is appears normal. Aortic arch: The aortic arch is appears normal. Pericardium: There is no significant pericardial effusion. Pulmonary arteries: Not well visualized. Systolic pressure is within the normal range, tricuspid regurgitation velocity 2.7 m/s Systemic veins: Inferior vena cava: The vessel is dilated. There is (>= 50%) respiratory change in the IVC dimension. Measurements Left ventricle Value Ref Aortic valve Value Ref WESLY, LAX 4.2 cm 3.8 - 5.2 Maxi diam, ED 1.7 cm ----- ESD, LAX 3.0 cm 2.2 - 3.5 Peak v, S 1.33 m/sec ----- FS, LAX 30 % 27 - 45 VTI, S 26.0 cm ----- PW, ED, LAX (H) 1.1 cm 0.6 - 0.9 Mean grad, S 3.0 mm Hg ----- FS 30 % 27 - 45 Peak grad, S 7.0 mm Hg ----- PW, ED (H) 1.1 cm 0.6 - 0.9 LVOT/AV, VTI ratio 0.77 ----- E', lat maxi, TDI (L) 8.7 cm/sec >=10.0 E/e', lat maix, 9 Mitral valve Value Ref TDI Peak E 0.77 m/sec ----- E', med maxi, TDI 7.7 cm/sec >=7.0 Peak A 1.15 m/sec --- -- E/e', med maxi, 10 Decel time 229 ms ----- TDI Peak grad, D 2.3 mm Hg ----- E', avg, TDI 8.2 cm/sec Peak E/A ratio 0.7 ----- E/e', avg, TDI 9 <=14 Pulmonic valve Value Ref LVOT Value Ref Peak v, S 1.27 m/sec ----- Peak brandon, S 0.97 m/sec Peak grad, S 6.0 mm Hg ----- VTI, S 20.0 cm Mean grad, S 3 mm Hg Tricuspid valve Value Ref TR peak v 2.7 m/sec <=2.8 Ventricular septum Value Ref Peak RV-RA grad, S 29 mm Hg ----- IVS, ED (H) 1.1 cm 0.6 - 0.9 Aortic root Value Ref Right ventricle Value Ref Root diam 2.9 cm <4.0 WESLY, LAX 3.5 cm WESLY minor ax, A4C (H) 4.1 cm 1.9 - 3.5 Ascending aorta Value Ref mid AAo AP diam, S 3.1 cm ----- Pressure, S 37 mm Hg Aortic arch Value Ref Left atrium Value Ref Arch diam 2.4 cm ----- AP dim, ES (H) 3.90 cm 2.70 - 3.80 Decending aorta Value Ref ML dim, A4C 4.0 cm Roshni peak brandon 0.79 m/sec ----- SI dim, A4C 5.2 cm Vol/bsa, ES, 1-p 26 ml/m^2 11 - 40 Pulmonary artery Value Ref A4C Pressure, S 31.0 mm Hg ----- Vol/bsa, ES, A/L 32 ml/m^2 16 - 34 Inferior vena cava Value Ref Right atrium Value Ref Diam 2.2 cm ----- SI dim, ES 4.6 cm 3.4 - 5.3 ML dim, ES, A4C 3.4 cm 2.6 - 4.4 Estimated RAP 8 mm Hg Legend: (L) and (H) jaylon values outside specified reference range. Prepared and electronically signed by Mo Flanagan MD 09/06/2019 17:38
[2019-09-06] MEDS: Acetaminophen TAB* 325 MG PO PRN (23:37)
[2019-09-07 06:57] LABS: HDL Cholesterol 44.7 mg/dL
[2019-09-07] MEDS ORDERED: Pantoprazole TAB * 40 MG TAB PO SCH (09:00)
[2019-09-07] MEDS ORDERED: Cyanocobalamin TAB* 500 MCG PO SCH (09:00)
[2019-09-07] MEDS ORDERED: Cholecalciferol TAB* 1000 UNITS PO SCH (09:00)
[2019-09-07] MEDS ORDERED: Aspirin EC TAB* 81 MG TAB.EC PO SCH (09:00)
[2019-09-07] MEDS ORDERED: Losartan TAB* 25 MG PO SCH (09:00)
--- NOTE | 2019-09-07 10:39 | PN ---
Subjective Date of Service: 09/07/19 Interval History: Admitted yesterday for chronic SOB. Trop negative x 3. No events on tele. Pending stress on Monday. CXR with possible obstructive disease but pt has no h/ o tobacco use and is not wheezing or hypoxic. She feels well today and wants to go home. She understands the indication for stress test, and would prefer to do that outpatient with her PCP. Objective Active Medications: Acetaminophen (Tylenol Tab*) 650 mg PO Q4H PRN PRN Reason: mild to moderate pain Last Admin: 09/06/19 23:37 Dose: 650 mg Aspirin (Aspirin Ec Tab*) 81 mg PO DAILY [facility] Last Admin: 09/07/19 08:18 Dose: 81 mg Cholecalciferol (Vitamin D Tab*) 1,000 units PO DAILY [facility] Last Admin: 09/07/19 08:18 Dose: 1,000 units Cyanocobalamin (Vitamin B12 Tab*) 1,000 mcg PO SuTuThSa [facility] Last Admin: 09/07/19 08:19 Dose: 1,000 mcg Enoxaparin Sodium (Lovenox(*)) 40 mg SUBCUT BEDTIME [facility] Last Admin: 09/06/19 23:38 Dose: 40 mg Estrogens Conjugated (Premarin Vag Cream*) 1 applic VAGINAL SuTh [facility] Hydrochlorothiazide (Hydrodiuril Tab*) 12.5 mg PO MoWeFr [facility] Last Admin: 09/06/19 23:43 Dose: Not Given Losartan Potassium (Cozaar Tab*) 50 mg PO DAILY [facility] Last Admin: 09/07/19 08:18 Dose: 50 mg Pantoprazole Sodium (Protonix Tab*) 40 mg PO QAM [facility] Last Admin: 09/07/19 08:19 Dose: 40 mg Vital Signs - 8 hr 09/07/19 09/07/19 03:05 07:19 Temperature 98.0 F 97.8 F Pulse Rate 71 65 Respiratory 16 18 Rate Blood Pressure 114/63 125/67 (mmHg) O2 Sat by Pulse 97 97 Oximetry Oxygen Devices in Use Now: None Appearance: well appearing woman in NAD, speaking in full sentences Eyes: No Scleral Icterus Ears/Nose/Mouth/Throat: Clear Oropharnyx, Mucous Membranes Moist Neck: NL Appearance and Movements; NL JVP, Trachea Midline Respiratory: Symmetrical Chest Expansion and Respiratory Effort, Clear to Auscultation Cardiovascular: NL Sounds; No Murmurs; No JVD, RRR Abdominal: NL Sounds; No Tenderness; No Distention, No Hepatosplenomegaly Extremities: No Edema Skin: No Rash or Ulcers Neurological: Alert and Oriented x 3, NL Gait Result Diagrams: 09/06/19 12:53 09/06/19 12:53 Additional Lab and Data: Lab Results 09/06/19 09/06/19 Range/Units 12:53 12:53 WBC 7.9 (3.5-10.8) 10^3/uL RBC 4.79 (3.70-4.87) 10^6 /uL Hgb 14.6 (12.0-16.0) g/dL Hct 41 (35-47) % MCV 86 (80-97) fL MCH 30 (27-31) pg MCHC 35 (31-36) g/dL RDW 13 (10-15) % Plt Count 281 (150-450) 10^3/uL MPV 7.7 (7.4-10.4) fL Neut % (Auto) 56.5 % Lymph % (Auto) 36.6 % [place] % (Auto) 5.8 % Eos % (Auto) 0.7 % Baso % (Auto) 0.4 % Absolute Neuts (auto) 4.5 (1.5-7.7) 10^3/ul Absolute Lymphs (auto) 2.9 (1.0-4.8) 10^3/ul Absolute Monos (auto) 0.5 (0-0.8) 10^3/ul Absolute Eos (auto) 0.1 (0-0.6) 10^3/ul Absolute Basos (auto) 0.0 (0-0.2) 10^3/ul Absolute Nucleated RBC 0.0 10^3/ul Nucleated RBC % 0.2 INR (Anticoag Therapy) 0.97 (0.82-1.09) Assess/Plan/Problems-Billing Assessment: 69W with HTN, GERD, presents with progressive, chronic SOB associated with orthopnea, LE edema, and worse on exertion. No EKG changes and troponin negative x 3. Pt reports history of fluid retention and is noted to have TTE with evidence for diastolic dysfunction. Discussed HFpEF and needing better BP control and a diuretic. Pt reports she skips many doses of HCTZ due to needing to pee at night. Discussed shorter acting diuretic and will try furosemide instead of HCTZ. Pt to follow up closely with PCP and bring log of daily weights and BP for titration.
[2019-09-07] MEDS: Acetaminophen TAB* 325 MG PO PRN (10:46)
[2019-09-07 11:18] VITALS: BP 135/66
--- NOTE | 2019-09-07 23:09 | DS ---
CC: Dr. Yenny Ma * DISCHARGE SUMMARY: DATE OF ADMISSION: 09/06/19 DATE OF DISCHARGE: 09/07/19 PRIMARY CARE PHYSICIAN: Dr. Yenny Ma. PRIMARY DIAGNOSIS: Chest pain possibly from new heart failure with preserved ejection fraction. SECONDARY DIAGNOSIS: Hypertension. DISCHARGE MEDICATIONS: 1. Losartan 50 mg at bedtime. 2. Furosemide 20 mg daily. 3. Aspirin 81 mg daily. 4. Lansoprazole 30 mg in the morning. 5. Vitamin D3 1000 units daily. 6. Vitamin B12 1000 mcg 4 times a week. HISTORY OF PRESENT ILLNESS: Ms. Curran is a 69-year-old woman with hypertension, GERD, esophageal spasm who was presenting with intermittent and chronic progressive chest pain and shortness of breath. She states she has had these symptoms for years and they happened intermittently approximately once every 3 months; however, over the last week, her symptoms have occurred daily. Her shortness of breath is worse at night when she is lying flat, and therefore, she has been sleeping in a recliner which improves her shortness of breath and chest pain. These symptoms can last for several hours before relieved by sitting upright. They are associated with chest tightness during exertion, although she states that her exercise tolerance to walking on flat ground is unlimited. Also on exertion, she has shortness of breath with dizziness. Her chest pain is midsternal without radiation and approximately 5 to 6 out of 10 in severity. The patient reports that she has intermittent low extremity edema and takes a diuretic at home, but only intermittently, as she notes that she has to wake up in the middle of the night to pee frequently even if she takes the diuretic in the morning. The patient denies fevers, chills, new productive cough, or malaise. HOSPITAL COURSE: In the emergency room, the patient's labs were unremarkable. Her troponin was negative x3, and EKG showed minimal ST depressions in V3 through V5 which were unchanged from EKG 4 years ago. Her chest x-ray showed possible obstructive lung disease. The hospitalist team was asked to evaluate the patient for admission and for cardiac stress testing. The patient was admitted to telemetry overnight and had no cardiac events. A total of 3 troponins were drawn and negative. The patient underwent a transthoracic echocardiogram which was with normal systolic function, however, it did show grade 1 diastolic dysfunction associated with mildly increased LV wall thickness and LA mildly dilated. It was discussed with the patient that she has mild heart failure and that she should be on a diuretic every day as this could help her symptoms of lower extremity edema and orthopnea. The patient was reluctant to try diuretic given that hydrochlorothiazide continues to increase her urine output even while she is asleep, but she was educated that Lasix is much shorter acting and she would urinate mostly in the morning. She was amenable to switching to this medications. She was also educated to continue measuring her weight daily as well as her blood pressure for ongoing titration of her hypertension and heart failure medications. She states that she has a followup appointment with her primary care physician in 2 weeks, but she would be advised to move this forward. The patient prefers to follow up the need for stress test with her outpatient provider. PERTINENT STUDIES: CBC, BMP, LFTs, BNP unremarkable. Troponins negative x3. Hemoglobin A1c was 4.8. LDL 142, HDL 45, triglycerides 163, total cholesterol 209. Chest x-ray with elevated lung volumes, unchanged mild elevation of the right hemidiaphragm. No focal pulmonary lesion, compelling alveolar consolidation, pleural effusion, pneumothorax. The heart pulmonary vasculature and mediastinal contours are unremarkable. Mild thoracic degenerative spondylosis. Transthoracic echocardiogram with LV cavity size normal, wall thickness mildly increased, systolic function normal with EF 60% to 65%, wall motion normal. No regional wall motion abnormalities. RV cavity size mildly dilated with systolic function mildly reduced. LA mildly dilated. Mitral valve with mild to moderate regurgitation. Pulmonary artery systolic pressure within the normal range. Doppler parameters are consistent with abnormal left ventricular relaxation (grade 1 diastolic dysfunction). EKG with normal sinus rhythm, rate 67. Minimal ST depression in anterior leads. T- wave inversion in III with T wave flattening in aVF and anteriorly. This is largely unchanged from EKG in November 2015. DISCHARGE PLAN: The patient will be discharged home to follow up with her primary care physician for ongoing cardiac risk stratification and optimization. Her only change to her home medication was the discontinuation of hydrochlorothiazide, and as such, she was encouraged to take furosemide 20 mg every day. The patient was educated to measure her blood pressure and weight every day and to bring this log to her primary care physician for optimization of her blood pressure and volume status. The patient was given return precautions which include, but are not limited to recurrence of chest pain or worsening shortness of breath. She should eat a healthy diet, low in processed foods and resume activity as tolerated. DISPOSITION: Home. CONDITION: Good. TIME SPENT: Approximately 60 minutes was spent on discharge of this patient, more than half of which was spent in care coordination at bedside for interview and exam. [id number]/[facility] #: [id number] AARTI
[2019-09-08] MEDS ORDERED: Conjugated Estrogens VAG CM* 42.5 gm TUBE VAGINAL SCH (09:00)
== END 2019-09-07 12:07 | disposition home or self-care (01) ==
LOC: ED 12:41 → MEDTELE 15:48
PROVIDERS: ADMIT Internal Medicine; ATTEND Internal Medicine
DX: R07.9 Chest pain, unspecified (principal); I10 Essential (primary) hypertension; R06.02 Shortness of breath; K21.9 Gastro-esophageal reflux disease without esophagitis; M19.90 Unspecified osteoarthritis, unspecified site; Z79.82 Long term (current) use of aspirin; Z79.899 Other long term (current) drug therapy; R53.1 Weakness; R00.2 Palpitations; Z82.49 Family history of ischemic heart disease and other diseases of the circulatory system
CPT/HCPCS: 36415; 71046; 80053; 80061; 83036; 83880; 84484; 85025; 85610; 93005; 93306; 96372; 99284; A9270-GY; G0378; J1650